=== PATIENT | male | born 1965 | race Caucasian/White ===

== ENCOUNTER 2019-07-27 18:17 | Emergency (ER) | payer BC ==
[2019-07-27 18:31] VITALS: BP 181/102; PULSE 112
[2019-07-27] MEDS ORDERED: HYDROmorphone 1 MG/ML Syringe IVPUSH ONE (19:05)
[2019-07-27] MEDS ORDERED: Metoclopramide 10 MG/2 ML SDV IVPUSH ONE (19:05)
[2019-07-27] MEDS ORDERED: Clindamycin Phosphate in D5W 900 MG in Premix Bag 1 BAG IV ONE ×2 (19:06)
[2019-07-27] MEDS ORDERED: Bupivacaine 0.5% 10 ML SDV INJECT ONE (19:08)
--- NOTE | 2019-07-27 19:11 | EDM.PDOC ---
ED HPI GENERAL MEDICAL PROBLEM - General Chief Complaint: Skin Complaint Stated Complaint: CYST BOIL ON TAILBONE Time Seen by Provider: 07/27/19 19:05 Source of Information: Reports: Patient History Limitations: Reports: No Limitations - History of Present Illness INITIAL COMMENTS - FREE TEXT/NARRATIVE: 54-year-old male presents to the ED with a painful swelling in the nuchal cleft just above the anus. He believes it started on July 21. 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 He went into septic shock after was opened at a walk-in clinic. He was in hospital for over 20 days and barely survived the illness. In about losing all of his scrotum with a flap graft from the left anterior thigh and portions of his left buttock removed. His not had any problems with perianal abscesses since that time. Did feel sick or fluids. Is good. Last meal was at 2:00 today. Of note the patient is a type II diabetic controlled with insulin Onset: Gradual Onset Date: 07/22/19 Duration: Day(s):, Getting Worse Location: Reports: Other (Lower nuchal cleft just above the anus.) Quality: Reports: Ache, Throbbing Severity: Moderate Improves with: Reports: None (8 out of 10 chance sit down.) Worsens with: Reports: Other Context: Denies: Activity (Sitting), Exercise, Lifting, Sick Contact, Trauma, Other Associated Symptoms: Reports: No Other Symptoms. Denies: Fever/Chills, Loss of Appetite, Shortness of Breath Treatments MANAGER CHANGE: Reports: NSAIDS (Motrin.) Buttock Pain Score (Numeric/FACES): 7 - Related Data Allergies Allergy/AdvReac Type Severity Reaction Status Date / Time No Known Allergies Allergy Verified 07/27/19 18:26 Home Meds: Home Meds Clindamycin HCl 300 mg PO QID #28 capsule 07/27/19 [Rx] Insulin Aspart [NovoLOG] 0 unit SQ TID 07/27/19 [History] Losartan/Hydrochlorothiazide [Losartan-HCTZ 100-25 MG] 1 tab PO DAILY 07/27/19 [ History] Tresiba. 07/27/19 [History] oxyCODONE HCl/Acetaminophen [Percocet 5-325 mg Tablet] 1 - 2 each PO Q4H PRN # 20 tablet 07/27/19 [Rx] Past Medical History Cardiovascular History: Reports: Hypertension Endocrine/Metabolic History: Reports: Diabetes, Type II (Currently controlled with insulin and Tresiba) Social & Family History - Tobacco Use Smoking Status *Q: Former Smoker Used Tobacco, but Quit: Yes Month/Year Tobacco Last Used: 2013 - Living Situation & Occupation Living situation: Reports: Single Occupation: Employed ED ROS GENERAL - Review of Systems Review Of Systems: See Below Constitutional: Denies: Fever, Chills, Malaise, Weakness, Fatigue, Decreased Appetite, Weight Loss HEENT: Reports: No Symptoms Respiratory: Reports: No Symptoms Cardiovascular: Reports: Blood Pressure Problem Endocrine: Reports: Fatigue, High Glucose GI/Abdominal: Reports: No Symptoms : Reports: No Symptoms Musculoskeletal: Reports: No Symptoms Skin: Reports: Other (Painful swelling lower nuchal cleft just above the anus.) Neurological: Reports: No Symptoms Psychiatric: Reports: No Symptoms Hematologic/Lymphatic: Reports: No Symptoms Immunologic: Reports: No Symptoms ED EXAM, SKIN/RASH Exam: See Below Exam Limited By: No Limitations General Appearance: Alert, WD/WN, No Apparent Distress, Other (She is 36.6 going to the nursing staff. Heart rate at rest is 112. Respiratory is 18 BP 181/ 102 when he is known to be hypertensive. Pulse ox is 97% room air. Note the patient does feel much warmer than 36.6.) Eye Exam: Bilateral Eye: Normal Inspection, PERRL Throat/Mouth: Normal Inspection, Normal Lips, Normal Oropharynx Head: Atraumatic, Normocephalic Neck: Normal Inspection, Supple, Non-Tender, Full Range of Motion. No: Lymphadenopathy (L), Lymphadenopathy (R) Respiratory/Chest: No Respiratory Distress, Lungs Clear, Normal Breath Sounds, No Accessory Muscle Use Cardiovascular: Normal Peripheral Pulses, Regular Rate, Rhythm, No Edema, No Gallop, No Murmur, No Rub Peripheral Pulses: 3+: Posterior Tibial (L), Posterior Tibial (R), Dorsalis Pedis (L), Dorsalis Pedis (R) GI/Abdominal: Normal Bowel Sounds, Soft, Non-Tender, No Organomegaly, No Abnormal Bruit, No Mass, Pelvis Stable, Other (Previous surgical excisions from colostomy formation and reanastomosis.) (Male) Exam: Other (Patient is missing his scrotum. Testicles are still present. A flap graft done from the superior left anterior leg and thigh medially.) Skin: Warm, Dry, Intact, Normal Color, No Rash, Erythema Location, Skin: Other (Patient has a perirectal abscess just superior to the anus and could be classified as a pilonidal cyst. Is approximately 3 cm in length and a centimeter in width fluctuant and very painful. Mildly erythematous. No surrounding cellulitis at this time) ED SKIN PROCEDURES - I&D Skin Prep: Chlorhexidine (Hibiciens) Local Anesthesia - Bupivicaine (Marcaine): 0.5% Plain Local Anesthetic Volume: Other Area Incised With: 15 Blade (10 mL) Drainage: Purulent, Bloody, Small Amount (5 mils) Probed to Break Up Loculations: Yes Packed With: Other (Burt saline soaked tube gauze packing) Sterile Dressing: Adhesive Dressing, 4x4(s) Complications: No Course - Vital Signs Last Recorded V/S: Last Vital Signs Temp 36.6 C 07/27/19 18:26 Pulse 112 H 07/27/19 18:26 Resp 18 07/27/19 18:26 BP 181/102 H 07/27/19 18:26 Pulse Ox 97 07/27/19 18:26 - Orders/Labs/Meds Orders: Active Orders 24 hr Category Date Time Status CULTURE ANAEROBIC + SMEAR [RM] Stat Lab 07/27/19 21:11 Ordered CULTURE BLOOD [BC] Stat Lab 07/27/19 19:24 Received CULTURE BLOOD [BC] Stat Lab 07/27/19 19:30 Received CULTURE WOUND [RM] Stat Lab 07/27/19 20:26 Received Sodium Chloride 0.9% [Normal Saline] 1,000 ml Med 07/27/19 19:15 Active IV ASDIRECTED Blood Culture x2 Reflex Set [OM.PC] Stat Oth 07/27/19 19:06 Ordered Medication Orders Sodium Chloride (Normal Saline) 1,000 mls @ 150 mls/hr IV ASDIRECTED RAE Last Admin: 07/27/19 19:39 Dose: 150 mls/hr Labs: Laboratory Tests 07/27/19 07/27/19 Range/Units 19:24 19:24 WBC 14.12 H (4.23-9.07) K/mm3 RBC 4.54 L (4.63-6.08) M/mm3 Hgb 14.1 (13.7-17.5) gm/dl Hct 41.0 (40.1-51.0) % MCV 90.3 (79.0-92.2) fl MCH 31.1 (25.7-32.2) pg MCHC 34.4 (32.2-35.5) g/dl RDW Std Deviation 42.6 (35.1-43.9) fL Plt Count 194 (163-337) K/mm3 MPV 8.4 L (9.4-12.3) fl Neutrophils % (Manual) 86 H (40-60) % Band Neutrophils % 1 (0-10) % Lymphocytes % (Manual) 8 L (20-40) % Atypical Lymphs % 0 % Monocytes % (Manual) 3 (2-10) % Eosinophils % (Manual) 1 (0.8-7.0) % Basophils % (Manual) 1 (0.2-1.2) Platelet Estimate Adequate RBC Morph Comment Normal Sodium 136 (136-145) mEq/L Potassium 3.4 L (3.5-5.1) mEq/L Chloride 102 (98-107) mEq/L Carbon Dioxide 23 (21-32) mEq/L Anion Gap 14.4 (5-15) BUN 14 (7-18) mg/dL Creatinine 1.1 (0.7-1.3) mg/dL Est Cr Clr Drug Dosing 77.66 mL/min Estimated GFR (MDRD) > 60 (>60) mL/min BUN/Creatinine Ratio 12.7 L (14-18) Glucose 266 H (74-106) mg/dL Calcium 9.4 (8.5-10.1) mg/dL Total Bilirubin 0.2 (0.2-1.0) mg/dL AST 23 (15-37) U/L ALT 17 (16-63) U/L Alkaline Phosphatase 80 (46-116) U/L C-Reactive Protein 6.9 H* (<1.0) mg/dL Total Protein 7.4 (6.4-8.2) g/dl Albumin 3.5 (3.4-5.0) g/dl Globulin 3.9 gm/dL Albumin/Globulin Ratio 0.9 L (1-2) Meds: Medications Generic Name Dose Route Start Last Admin Trade Name Freq PRN Reason Stop Dose Admin Sodium Chloride 1,000 mls @ 150 mls/hr 07/27/19 19:15 07/27/19 19:39 Normal Saline IV 150 mls/hr ASDIRECTED RAE Administration Discontinued Medications Generic Name Dose Route Start Last Admin Trade Name Freq PRN Reason Stop Dose Admin Bupivacaine HCl 10 ml 07/27/19 19:08 07/27/19 19:30 Sensorcaine-Mpf 0.5% INJECT 07/27/19 19:09 10 ml ONETIME ONE Administration Fentanyl 100 mcg 07/27/19 19:25 07/27/19 19:59 Sublimaze IVPUSH 07/27/19 19:26 100 mcg ONETIME ONE Administration Hydromorphone HCl 1 mg 07/27/19 19:05 07/27/19 19:29 Dilaudid IVPUSH 07/27/19 19:06 1 mg ONETIME ONE Administration Clindamycin Phosphate 900 mg/ 50 mls @ 100 mls/hr 07/27/19 19:06 07/27/19 20: 30 Premix IV 07/27/19 19:35 100 mls/hr ONETIME ONE Administration Metoclopramide HCl 10 mg 07/27/19 19:05 07/27/19 19:30 Reglan IVPUSH 07/27/19 19:06 10 mg ONETIME ONE Administration Midazolam HCl 6 mg 07/27/19 19:26 07/27/19 20:00 Versed 1 Mg/Ml IVPUSH 07/27/19 19:27 Not Given ONETIME ONE Midazolam HCl 6 mg 07/27/19 19:32 07/27/19 19:59 Versed 1 Mg/Ml IVPUSH 07/27/19 19:33 6 mg ONETIME ONE Administration - Radiology Interpretation Free Text/Narrative:: 54-year-old male presents to the ED with a painful swelling in the nuchal cleft just above his anus that is been gradually worsening over the last 5 days. Has had previous perianal abscess with development of Judith's gangrene 5 years ago requiring extensive hospitalization and multiple surgeries. And some dependent diabetic and has hypertension. Examination he has a pilonidal cyst/ perianal abscess just superior to the anus in the midline in the nuchal cleft. More likely to be a benign nodule cyst. It is 3 cm in length and 1 cm in width. It needs to be incised and drained. Patient has consented this procedure. He will have lab work including blood cultures 2. He will then be started on clindamycin 900 mg IV. Will be due treat him with Versed and fentanyl for conscious sedation and incise and drain the abscess under local anesthetic and possibly pack the wound. - Re-Assessments/Exams Free Text/Narrative Re-Assessment/Exam: 07/27/19 20:20 Patient underwent incision and drainage of perianal abscess in the nuchal cleft just superior to the anus carried out with a 3 cm incision. A good deal of scar tissue present in this area identified. Tissue broken down and most of the pus was in the inferior aspect of the abscess. Cultures were obtained. Patient tolerated the procedure well under conscious sedation. A total of 6 mg of Versed and 100 mg of fentanyl. The wound was packed with half -inch soaked Tubegauze in saline approximately 3 inches of packing placed. The plan will be to allow him to recover from the conscious sedation in the meantime he will be given clindamycin 900 mg IV. Be discharged on clindamycin 300 mg 4 times daily for the next 7 days to clear up infection. Percocet tabs 5/ 325 milligrams strength one or 2 every 4-6 hours necessary for pain relief. 07/27/19 21:15 Labs reveal a elevated white count at 14.12 with 86 per percent neutrophils and 1% band cells. Hemoglobin is 14.1 with hematocrit of 41.0. Platelet counts 194,000. Sodium 136 with a potassium of 3.4. Chloride is 102 with a bicarbonate of 23. Anion gap is 14.4. BUN is 14 with a creatinine of 1.1. GFR is greater than 60. Glucose was elevated at 266. Calcium is 9.4. Liver function is normal C-reactive protein is elevated at 6.9. Total protein 7.4 with an albumin fraction of 3.5. Departure - Departure Time of Disposition: 21:08 Disposition: Home, Self-Care 01 Condition: Fair Clinical Impression: Stephie-rectal abscess - Discharge Information *PRESCRIPTION DRUG MONITORING PROGRAM REVIEWED*: Not Applicable *COPY OF PRESCRIPTION DRUG MONITORING REPORT IN PATIENT JOSH: Not Applicable Prescriptions: Clindamycin HCl 300 mg PO QID #28 capsule oxyCODONE HCl/Acetaminophen [Percocet 5-325 mg Tablet] 1 - 2 each PO Q4H PRN # 20 tablet PRN Reason: pain relief. Instructions: Perirectal Abscess Referrals: PCP,None [Primary Care Provider] - Forms: ED Department Discharge Additional Instructions: Evaluation the emergency room today in regards to gradually worsening pain and swelling in the lower nuchal cleft of the buttock due to development of a perirectal abscess at the 12 o'clock position. Previous history of Judith's gangrene or necrotizing fasciitis 5 years ago from a similar type of problem. The abscess was incised and drained under conscious sedation in the emergency department. Obtained about 5 mils of pus. Wound was packed with approximately 2 and half to 3 inches of saline soaked gauze to keep it open. Ideally this should stay in the wound for about 2 days and then you could remove it. If you have any troubles trying to remove it return to the ED for the doctor to remove it please. The surgical wound will heal on its own. The medication as needed Percocet 5/325 mg likely 2 tablets every 4 hours for pain relief. Suggest MiraLAX powder 17 g once daily while on the pain medication to prevent constipation from occurring. Antibiotic is to be clindamycin 300 mg 4 times daily starting tomorrow morning. This is to be taken for one week. Return to the ED or follow-up with personal physician if any other problems develop such as fever, chills, nausea vomiting Sepsis Event Note - Evaluation Sepsis Screening Result: No Definite Risk - Focused Exam Vital Signs: Vital Signs Temp Pulse Resp BP Pulse Ox 07/27/19 18:26 36.6 C 112 H 18 181/102 H 97 Date Exam was Performed: 07/27/19 Time Exam was Performed: 21:36 - My Orders Last 24 Hours: My Active Orders 07/27/19 19:06 Blood Culture x2 Reflex Set [OM.PC] Stat 07/27/19 19:15 Sodium Chloride 0.9% [Normal Saline] 1,000 ml IV ASDIRECTED 07/27/19 19:24 CULTURE BLOOD [BC] Stat 07/27/19 19:30 CULTURE BLOOD [BC] Stat 07/27/19 20:26 CULTURE WOUND [RM] Stat 07/27/19 21:11 CULTURE ANAEROBIC + SMEAR [RM] Stat - Assessment/Plan Last 24 Hours: My Active Orders 07/27/19 19:06 Blood Culture x2 Reflex Set [OM.PC] Stat 07/27/19 19:15 Sodium Chloride 0.9% [Normal Saline] 1,000 ml IV ASDIRECTED 07/27/19 19:24 CULTURE BLOOD [BC] Stat 07/27/19 19:30 CULTURE BLOOD [BC] Stat 07/27/19 20:26 CULTURE WOUND [RM] Stat 07/27/19 21:11 CULTURE ANAEROBIC + SMEAR [RM] Stat
[2019-07-27] MEDS ORDERED: Sodium Chloride 0.9% 1,000 ML IV SCH (19:15)
[2019-07-27] MEDS ORDERED: fentaNYL 100 MCG/2 ML SDV IVPUSH ONE (19:25)
[2019-07-27] MEDS ORDERED: Midazolam 1 MG/ML 5 ML SDV IVPUSH ONE (19:26)
[2019-07-27] MEDS ORDERED: Midazolam 1 MG/ML 2 ML SDV IVPUSH ONE (19:32)
== END 2019-07-27 21:35 | disposition home or self-care (01) ==
LOC: JD.ED 18:17
DX: K61.1 Rectal abscess (principal); I10 Essential (primary) hypertension; E11.9 Type 2 diabetes mellitus without complications; Z79.4 Long term (current) use of insulin; Z79.899 Other long term (current) drug therapy; Z87.891 Personal history of nicotine dependence
CPT/HCPCS: 36415; 46040; 80053; 85007; 85027; 86140; 87040; 87070; 87077; 87181; 87184; 96361; 96365; 96375; 99283; J1170; J2250; J2765; J3010; J3490; J7030; 10061

== ENCOUNTER 2019-09-18 07:46 | Emergency (ER) | payer BC ==
--- NOTE | 2019-09-18 08:37 | EDM.PDOC ---
ED HPI GENERAL MEDICAL PROBLEM - General Chief Complaint: General Stated Complaint: SKIN COMPLAINT Time Seen by Provider: 09/18/19 08:06 Source of Information: Reports: Patient History Limitations: Reports: No Limitations - History of Present Illness INITIAL COMMENTS - FREE TEXT/NARRATIVE: The patient presents with a recurrent pilonidal cyst. He had one drained in July here in the ER. He noticed some discomfort on Tuesday and now he has drainage down his legs. He got really sick from one about 5 years ago where he got septic. He drives truck for hours. He has no other symptoms such as fever or chills. Onset: Gradual Duration: Day(s): Location: Reports: Other (Buttock) Quality: Reports: Sharp Severity: Moderate Improves with: Reports: None Worsens with: Reports: None Associated Symptoms: Reports: No Other Symptoms Sacral Pain Score (Numeric/FACES): 8 - Related Data Allergies Allergy/AdvReac Type Severity Reaction Status Date / Time No Known Allergies Allergy Verified 09/18/19 07:59 Home Meds: Home Meds Insulin Aspart [NovoLOG] 0 unit SQ TID 07/27/19 [History] Losartan/Hydrochlorothiazide [Losartan-HCTZ 100-25 MG] 1 tab PO DAILY 07/27/19 [ History] Tresiba. 07/27/19 [History] Clindamycin HCl 450 mg PO TID #90 capsule 09/18/19 [Rx] oxyCODONE HCl/Acetaminophen [Percocet 5-325 mg Tablet] 1 - 2 each PO Q6HR PRN # 20 tablet 09/18/19 [Rx] Past Medical History Cardiovascular History: Reports: Hypertension Endocrine/Metabolic History: Reports: Diabetes, Type II Social & Family History - Tobacco Use Smoking Status *Q: Never Smoker - Caffeine Use Caffeine Use: Reports: None - Recreational Drug Use Recreational Drug Use: No - Living Situation & Occupation Living situation: Reports: Single Occupation: Employed ED ROS GENERAL - Review of Systems Review Of Systems: See Below Constitutional: Reports: No Symptoms HEENT: Reports: No Symptoms Respiratory: Reports: No Symptoms Cardiovascular: Reports: No Symptoms Endocrine: Reports: No Symptoms GI/Abdominal: Reports: No Symptoms : Reports: No Symptoms Musculoskeletal: Reports: No Symptoms Skin: Reports: Other (Pilonidal cyst) ED EXAM, GENERAL - Physical Exam Exam: See Below Exam Limited By: No Limitations General Appearance: Alert, No Apparent Distress Ears: Normal External Exam Nose: Normal Inspection Head: Atraumatic, Normocephalic Neck: Normal Inspection Respiratory/Chest: No Respiratory Distress Skin Exam: Other (Erythema and edema with drainage of a pilonidal cyst) Course - Vital Signs Last Recorded V/S: Last Vital Signs Temp 96.5 F 09/18/19 08:01 Pulse 92 09/18/19 08:01 Resp 14 09/18/19 08:01 BP 179/100 H 09/18/19 08:01 Pulse Ox 98 09/18/19 08:01 - Re-Assessments/Exams Free Text/Narrative Re-Assessment/Exam: 09/18/19 08:32 There is nothing to open up at this time. I will get him on some clindamycin and something for pain. Departure - Departure Time of Disposition: 08:40 Disposition: Home, Self-Care 01 Condition: Good Clinical Impression: Pilonidal cyst with abscess - Discharge Information *PRESCRIPTION DRUG MONITORING PROGRAM REVIEWED*: No *COPY OF PRESCRIPTION DRUG MONITORING REPORT IN PATIENT JOSH: No Prescriptions: oxyCODONE HCl/Acetaminophen [Percocet 5-325 mg Tablet] 1 - 2 each PO Q6HR PRN # 20 tablet PRN Reason: Pain Clindamycin HCl 450 mg PO TID #90 capsule Referrals: PCP,None [Primary Care Provider] - Mathew Lott MD [Physician] - 1 Week Additional Instructions: Take the clindamycin 3 pills 3 times per day for 10 days. Take a warm bath a couple times per day. Take motrin or tylenol for pain. If that does not help, try the percocet for pain. Follow up with Dr Lott within a week. Please return if you are worse. Sepsis Event Note - Evaluation Sepsis Screening Result: No Definite Risk - Focused Exam Vital Signs: Vital Signs Temp Pulse Resp BP Pulse Ox 09/18/19 08:01 96.5 F 92 14 179/100 H 98 Date Exam was Performed: 09/18/19 Time Exam was Performed: 08:29
== END 2019-09-18 08:50 | disposition home or self-care (01) ==
LOC: JD.ED 07:46
CPT/HCPCS: 99282; 99283

== ENCOUNTER 2020-08-06 22:44 | Emergency (ER) | payer BC, MEDICAID ==
[2020-08-06 22:59] VITALS: PULSE 776
[2020-08-06] MEDS ORDERED: Bupivacaine 0.5% 10 ML SDV INJECT ONE (23:27)
[2020-08-06] MEDS ORDERED: Lidocaine 1% with EPINEPHrine 1:100,000 20 ML MDV INJECT ONE (23:27)
--- NOTE | 2020-08-06 23:27 | EDM.PDOC ---
ED HPI GENERAL MEDICAL PROBLEM - General Chief Complaint: Skin Complaint Stated Complaint: CYST ON TAILBONE Time Seen by Provider: 08/06/20 22:56 Source of Information: Reports: Patient History Limitations: Reports: No Limitations - History of Present Illness INITIAL COMMENTS - FREE TEXT/NARRATIVE: Mr. Sun is a very pleasant 55-year-old gentleman who now presents with pain an d swelling to his tailbone area that began past 08/04/2020. It has progressively been getting worse. No injury to the area. No recent fever. No spontaneous draining. He has had similar symptoms in the past, due to a pilonidal cyst. He states that they have been drained on 3 prior occasions all in the ED. He has never followed up with a surgeon. The patient states that he has been soaking in the tub and applying Preparation H, without improvement of his symptoms. The patient has diabetes. He states that he checks his blood glucose 4 times a day, with a normal range in the upper 100s to lower 200s. They have not changed recently. Here in the ED, the patient's initial BP is found to be elevated at 202/88. He is afebrile, saturating 100% on room air. Other than his tailbone area pain and swelling, the patient denies having a recent fever, chills, sore throat, ear pain, nasal or sinus congestion, cough, dyspnea, chest pain, palpitations, nausea, vomiting, constipation, diarrhea, abdominal pain, urinary symptoms, recent weight gain or weight loss, recent bloody bowel movements or black bowel movements, recent joint aches, headaches, or rashes. The patient's PCP is DEUCE Colvin. He has not received an influenza vaccine this season, and declined an offer to receive one here in the ED. Rectal Pain Score (Numeric/FACES): 10 - Related Data Allergies Allergy/AdvReac Type Severity Reaction Status Date / Time No Known Allergies Allergy Verified 08/06/20 22:58 Home Meds: Home Meds Insulin Aspart [NovoLOG] 0 unit SQ TID 07/27/19 [History] Losartan/Hydrochlorothiazide [Losartan-HCTZ 100-25 MG] 1 tab PO DAILY 07/27/19 [History] Tresiba. 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) - Past Surgical History HEENT Surgical History: Reports: Oral Surgery (dentures) Dermatological Surgical History: Reports: Other (See Below) (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 ED EXAM, GENERAL - Physical Exam Exam: See Below Exam Limited By: No Limitations General Appearance: Alert, WD/WN, No Apparent Distress Rectal (Males) Exam: Other (There is an approximately 4.5 cm oval swelling located over the inferior aspect of the coccyx, extending to the posterior aspect of the anus. The lesion is not significantly erythematous, however, it is considerably tender to palpation, and very fluctuant. No surrounding erythema to suggest cellulitis.) ED I&D PROCEDURES - I&D Site: Pilonidal cyst Skin prep: Providone-Iodine (Betadine) Local anesthesia - Lidocaine (Xylocaine): 1% with EPI (50:50 admixture) Local Anesthesia - Bupivicaine (Marcaine): 0.5% Plain (50:50 admixture) Local Anesthetic Volume: 2cc Area Incised With: 15 Blade Drainage: Purulent, Large Amount Probed to Break Up Loculations: Yes Packed With: 1/2 in. Iodoform Sterile Dressing: Adhesive Dressing, 4x4(s) Complications: No Course - Vital Signs Last Recorded V/S: Last Vital Signs Temp 36.4 C 08/06/20 22:55 Pulse 776 H 08/06/20 22:55 Resp 17 08/07/20 00:15 BP 175/85 H 08/07/20 00:15 Pulse Ox 99 08/07/20 00:15 - Orders/Labs/Meds Orders: Active Orders 24 hr Category Date Time Status CULTURE WOUND [RM] Stat Lab 08/06/20 23:50 Received Meds: Medications Discontinued Medications Generic Name Dose Route Start Last Admin Trade Name Freq PRN Reason Stop Dose Admin Amoxicillin/Clavulanate Potassium 1 tab 08/06/20 23:28 08/06/20 23:38 Augmentin 875 Mg/125 Mg PO 08/06/20 23:29 1 tab ONETIME STA Administration Bupivacaine HCl 10 ml 08/06/20 23:27 08/06/20 23:38 Sensorcaine-Mpf 0.5% INJECT 08/06/20 23:28 10 ml ONETIME ONE Administration Lidocaine/Epinephrine 20 ml 08/06/20 23:27 08/06/20 23:38 Xylocaine 1% With Epinephrine 1:100,000 INJECT 08/06/20 23:28 20 ml ONETIME ONE Administration - Re-Assessments/Exams Free Text/Narrative Re-Assessment/Exam: 08/06/20 23:[address] Kirby at 23:21. The patient either has a very low pilonidal cyst or an unusually located perirectal abscess. He recommended that I go ahead and drain the pocket, then pack it with iodoform, if possible. If the wall of the lesion is too thin to hold packing, he recommended that I remove an elliptical shaped piece of the skin to leave an opening so that it can continue to drain. The patient should then be started on Augmentin, and he is to follow-up in Dr. Kirby's clinic at 8 AM tomorrow morning, where he will be fit in. 08/06/20 23:58 The area was sterilized with Betadine. I then locally injected a 50-50 admixture of bupivacaine 0.5% without epinephrine and lidocaine 1% with epinephrine, until the lesion was thoroughly blanched, and the patient reported anesthesia to the area. An approximately 1.5 cm linear laceration was then made at the superior end of the lesion, inferiorly, releasing a large amount of pus. Cultures were obtained from inside the lesion. The wound was then probed with a cotton tipped swab in order to break up any possible loculations. The wound was squeezed to try to remove as much pus as possible. The wound was then packed with 1/2 inch iodoform. A roll of 4 x 4 gauze was then applied over the iodoform, over which was applied elastic tape to hold the gauze in place. The patient tolerated the procedure well. He was started on Augmentin here in the ED, and I will submit a prescription for the same. He is to follow-up with Dr. Kirby in his office at 8:00 tomorrow morning. Departure - Departure Time of Disposition: 00:02 Disposition: Home, Self-Care 01 Condition: Good Clinical Impression: Pilonidal cyst with abscess - Discharge Information *PRESCRIPTION DRUG MONITORING PROGRAM REVIEWED*: Not Applicable *COPY OF PRESCRIPTION DRUG MONITORING REPORT IN PATIENT JOSH: Not Applicable Prescriptions: Amoxicillin/Clavulanate K [Augmentin 875-125 MG] 1 tab PO Q12H #14 tablet Instructions: Pilonidal Cyst Drainage, Care After Referrals: Carola Kirby MD [Physician] - Nhi Chowdhury PA-C [Physician Detail Maker And Fitter] - Forms: ED Department Discharge Additional Instructions: You were seen in the emergency room for a painful swelling over your tailbone. On your history and physical examination, you appear to have a pilonidal cyst with an abscess. The abscess was incised and drained in the ER, then packed with iodoform. You have been started on the antibiotic Augmentin, and a prescription for Augmentin has been sent to the [facility], located at [address] [place] [address]. Take 1 tablet of Augmentin every 12 hours, starting later this morning, , 08/07/2020. Finish the entire prescription unless told otherwise by Dr. Kirby. Follow-up with the Surgeon Dr. Kirby in his office at 8:00 tomorrow morning. Be prepared to wait for several hours. He will squeeze you into his schedule. If any other problems, please do not hesitate to return to the ER. Sepsis Event Note (ED) - Evaluation Sepsis Screening Result: No Definite Risk - Focused Exam Vital Signs: Vital Signs Temp Pulse Resp BP Pulse Ox 08/07/20 00:15 17 175/85 H 99 08/06/20 22:55 36.4 C 776 H 18 202/88 H 100 - My Orders Last 24 Hours: My Active Orders 08/06/20 23:50 CULTURE WOUND [RM] Stat - Assessment/Plan Last 24 Hours: My Active Orders 08/06/20 23:50 CULTURE WOUND [RM] Stat
[2020-08-06] MEDS ORDERED: Amoxicillin/Clavulanate K 875-125 MG Tab PO STA (23:28)
[2020-08-07 00:19] VITALS: BP 175/85
== END 2020-08-07 00:15 | disposition home or self-care (01) ==
LOC: JD.ED 22:44
DX: L05.01 Pilonidal cyst with abscess (principal); E11.9 Type 2 diabetes mellitus without complications; I10 Essential (primary) hypertension; E66.9 Obesity, unspecified; Z79.899 Other long term (current) drug therapy; Z68.31 Body mass index [BMI] 31.0-31.9, adult; Z79.4 Long term (current) use of insulin; Z87.891 Personal history of nicotine dependence
CPT/HCPCS: 10080; 87070; 87077; 87181; 87184; 99283; A9270; J3490

== ENCOUNTER 2024-09-09 21:11 | Emergency (ER) | payer MEDICAID, MEDICARE ==
[2024-09-09] MEDS: Lactulose Soln 10 GM/15 ML 30 ML UD Cup PO ONE (22:00)
[2024-09-09] MEDS: Sodium Chloride 0.9% 1,000 ML IV ONE (22:00)
[2024-09-09] MEDS: Dicyclomine 10 MG Cap PO ONE (22:00)
[2024-09-09] MEDS: Pantoprazole 40 MG in Sodium Chloride 0.9% 100 ML IV ONE (22:00)
[2024-09-09 22:11] LABS: BASOPHILS ABSOLUTE AUTO 0.1 K/mm3 (0.0-0.2); BASOPHILS PERCENT AUTO 0.6 % (0.0-1.0); EOSINOPHILS ABSOLUTE AUTO 0.1 K/mm3 (0.0-0.4); EOSINOPHILS PERCENT AUTO 1.1 % (0.0-6.0); HEMOGLOBIN 18.4 gm/dl (14.0-18.0); IMMATURE GRAN ABSOLUTE AUTO 0.06 K/mm3 (0.00-0.05); IMMATURE GRAN PERCENT AUTO 0.7 % (0.0-0.4); LYMPHOCYTES ABSOLUTE AUTO 1.8 K/mm3 (1.0-4.8); LYMPHOCYTES PERCENT AUTO 19.8 % (24.0-44.0); MEAN CORPUSCULAR HEMOGLOBIN 31.5 pg (28.0-32.0); MEAN CORPUSCULAR HGB CONC 34.1 g/dl (32.0-36.0); MEAN CORPUSCULAR VOLUME 92.5 fl (83.0-99.0); MEAN PLATELET VOLUME 8.7 fl (9.4-12.4); MONOCYTES ABSOLUTE AUTO 0.9 K/mm3 (0.0-0.8); MONOCYTES PERCENT AUTO 9.6 % (0.0-8.0); NEUTROPHILS ABSOLUTE AUTO 6.1 K/mm3 (1.8-7.7); NEUTROPHILS PERCENT AUTO 68.2 % (41.0-71.0); PLATELET COUNT,PLT 166 K/mm3 (150-400); RED BLOOD CELL COUNT 5.84 M/mm3 (4.52-5.90); WHITE BLOOD CELL COUNT,WBC 8.99 K/mm3 (3.9-11.3)
[2024-09-09 22:32] LABS: A/G RATIO 1.1 (1-2); ALBUMIN 4.2 g/dl (3.4-5.0); ANION GAP 15.1 (5-15); BILIRUBIN TOTAL 0.5 mg/dL (0.2-1.0); BUN/CREATININE RATIO 19.2 (14-18); CALCIUM 10.5 mg/dL (8.5-10.1); CREATININE 1.3 mg/dL (0.7-1.3); EST CRCL DRUG DOSING (CG) 61.94 mL/min; POTASSIUM,K 4.1 mEq/L (3.5-5.1); PROTEIN TOTAL,TP 7.9 g/dl (6.4-8.2)
[2024-09-09 23:53] VITALS: BP 149/89; PULSE 97
== END 2024-09-09 23:35 | disposition home or self-care (01) ==
LOC: JD.ED 21:11
DX: K85.90 Acute pancreatitis without necrosis or infection, unspecified (principal); K21.9 Gastro-esophageal reflux disease without esophagitis; K59.00 Constipation, unspecified; E86.0 Dehydration; I10 Essential (primary) hypertension; E11.9 Type 2 diabetes mellitus without complications; E66.9 Obesity, unspecified; Z68.36 Body mass index [BMI] 36.0-36.9, adult; Z79.4 Long term (current) use of insulin; Z79.899 Other long term (current) drug therapy
CPT/HCPCS: 36415; 71045; 74018; 80053; 82550; 83690; 84484; 85025; 93005; 96361; 96374; 99284; A9270; J2470; J7030; 93010

== ENCOUNTER 2024-09-14 00:35 | Emergency (ER) | payer MEDICARE ==
[2024-09-14] MEDS: ALPRAZolam 1 MG Tab PO ONE (01:30)
[2024-09-14 02:39] VITALS: BP 129/94; PULSE 78
== END 2024-09-14 02:30 | disposition home or self-care (01) ==
LOC: JD.ED 00:35
DX: R14.1 Gas pain (principal); F41.9 Anxiety disorder, unspecified; I10 Essential (primary) hypertension; E11.9 Type 2 diabetes mellitus without complications; E66.9 Obesity, unspecified; K21.9 Gastro-esophageal reflux disease without esophagitis; Z87.891 Personal history of nicotine dependence; Z79.4 Long term (current) use of insulin; Z79.899 Other long term (current) drug therapy; Z68.36 Body mass index [BMI] 36.0-36.9, adult
CPT/HCPCS: 74018; 99284; A9270